=== PATIENT | female | born 1990 | race Caucasian/White ===

== ENCOUNTER 2024-08-14 20:03 | Emergency (ER) | payer BC, OTHER ==
[~2024-08-14] VITALS: Ht 160 cm; Wt 54.5 kg
[~2024-08-14 20:03] MED LIST: ALBU8HFA PO; GUAI120018 PO
[2024-08-14] MEDS: LEVONORGESTREL 1.5MG tablet 1.5 MG TABLET PO ONE (22:25)
[2024-08-14] MEDS: TINIDAZOLE 500 MG TABLET PO ONE (22:25)
[2024-08-14] MEDS: CefTRIAXone 500MG IM Kit w/LIDOcaine IM ONE (22:25)
[2024-08-14] MEDS: azithromycin 250mg tablet PO ONE (22:25)
[2024-08-14 23:19] LABS: BASOPHILS # (AUTO) 0.1 X10'3 (0-0.2); BASOPHILS % (AUTO) 0.8 % (0-1); EOSINOPHILS % (AUTO) 0.5 % (0-6); HEMATOCRIT 39.9 % (35.0-45.0); HEMOGLOBIN 13.7 g/dl (12.0-16.0); LYMPHOCYTES # (AUTO) 1.8 X10'3 (1.1-4.8); LYMPHOCYTES % (AUTO) 24.7 % (21-51); MEAN CORPUSCULAR HEMOGLOBIN 29.6 PG (27.0-31.0); MEAN CORPUSCULAR HGB CONC 34.4 g/dL (33.0-36.5); MEAN CORPUSCULAR VOLUME 86.2 FL (78-98); MEAN PLATELET VOLUME 9.7 FL (7.4-10.4); MONOCYTES # (AUTO) 0.6 X10'3 (0-0.9); MONOCYTES % (AUTO) 8.2 % (2-12); NEUTROPHILS # (AUTO) 4.9 X10'3 (1.8-7.7); NEUTROPHILS % (AUTO) 65.8 % (42-75); PLATELET COUNT 322 X10'3 (140-440); RED BLOOD COUNT 4.63 X10'6 (4.20-5.60); RED CELL DISTRIBUTION WIDTH 13.5 % (11.5-14.5); WHITE BLOOD COUNT 7.4 X10'3 (4.5-11.0)
[2024-08-14] MEDS ORDERED: diphenhydrAMINE 50 mg/ml inj IM ONE (23:35)
[2024-08-14] MEDS: haloperidol lactate 5mg/ml inj IM ONE (23:35)
[2024-08-15 00:09] LABS: BILIRUBIN,URINE NEGATIVE (Neg); CLARITY,URINE CLEAR (Clear); COLOR,URINE YELLOW (Yellow); GLUCOSE, URINE NEGATIVE (Neg); KETONES,URINE >=80 mg/dl (Neg); LEUKOCYTE ESTERASE ,URINE NEGATIVE (Neg); NITRITES, URINE NEGATIVE (Neg); OCCULT BLOOD,URINE NEGATIVE (Neg); PH,URINE 6.5 (4.8-8.0); PROTEIN,URINE NEGATIVE (Neg); URINE HCG NEGATIVE (NEG); UROBILINOGEN,URINE 0.2 E.U/dL (0.2-1.0)
[2024-08-15 00:10] LABS: ALBUMIN 4.3 G/DL (3.4-5.0); ANION GAP 11 (8-16); BLOOD UREA NITROGEN 3 MG/DL (7-18); BUN/CREATININE RATIO 5.5 (10.0-20.0); CHLORIDE 104 MMOL/L (99-107); CREATININE 0.55 MG/DL (0.40-0.90); GLUCOSE 115 MG/DL (70-104); POTASSIUM 3.3 MMOL/L (3.5-5.1); SODIUM 140 MMOL/L (135-145); eCRCL 121 ML/MIN; eGFR > 90 ML/MIN
[2024-08-15 00:14] LABS: UA COLLECTION TYPE NON-SPECIFIED
[2024-08-15 00:29] LABS: ETHANOL < 10 MG/DL (<10)
[2024-08-15 00:29] LABS: URINE AMPHETAMINE SCREEN POSITIVE (Neg); URINE BARBITUATE SCREEN NEGATIVE (Neg); URINE BENZODIAZEPINES SCREEN POSITIVE (Neg); URINE CANNABINOID SCREEN POSITIVE (Neg); URINE COCAINE SCREEN NEGATIVE (Neg); URINE METHADONE SCREEN NEGATIVE (Neg); URINE OPIATE SCREEN NEGATIVE (Neg); URINE PHENCYCLIDINE SCREEN NEGATIVE (Neg)
[2024-08-15] MEDS: potassium Cl 20 mEq SR tablet PO STA (00:52)
[2024-08-15] MEDS: LORazepam 2 mg/ml vial IM ONE (01:29)
[2024-08-15] MEDS: diphenhydrAMINE 25mg capsule PO ONE (03:23)
[2024-08-15] MEDS: OLANZapine 2.5MG tablet PO STA (11:47)
[2024-08-15] MEDS ORDERED: NO HOME MEDS (15:53)
[2024-08-15] MEDS: LEVONORGESTREL 1.5MG tablet 1.5 MG TABLET PO ONE (16:29)
[2024-08-15] MEDS: azithromycin 250mg tablet PO ONE (16:29)
[2024-08-15] MEDS: TINIDAZOLE 500 MG TABLET PO ONE (16:29)
[2024-08-15] MEDS: CefTRIAXone 500MG IM Kit w/LIDOcaine IM ONE (16:29)
[2024-08-15 18:37] VITALS: BP 95/62; PULSE 100; RESP 16; TEMP 97.9; O2SAT 96
== END 2024-08-15 18:43 | disposition still patient (30) ==
LOC: ER 20:05 → EEVIPCON 20:05 → ER 08-15 18:43
DX: E87.6 Hypokalemia (principal); F29 Unspecified psychosis not due to a substance or known physiological condition; Z88.0 Allergy status to penicillin; Z88.1 Allergy status to other antibiotic agents; Z88.2 Allergy status to sulfonamides; Z20.822 Contact with and (suspected) exposure to COVID-19
CPT/HCPCS: 36415; 80048; 80305; 80320; 81003; 81025; 84443; 85025; 87811; 96372; 99285; J0696; J2060; Q0163; 99284

== ENCOUNTER 2024-08-28 18:47 | Emergency (ER) | payer BC ==
[~2024-08-28] VITALS: Ht 160 cm; Wt 54.0 kg
[~2024-08-28 18:47] MED LIST changes: -ALBU8HFA PO; -GUAI120018 PO; +NO HOME MEDS
[2024-08-28 18:53] VITALS: BP 112/75; PULSE 123; RESP 16; TEMP 97.8; O2SAT 98
== END 2024-08-28 22:29 | disposition left against medical advice (07) ==
LOC: ER 18:48
DX: F41.9 Anxiety disorder, unspecified (principal); Z88.0 Allergy status to penicillin; Z88.2 Allergy status to sulfonamides; Z88.8 Allergy status to other drugs, medicaments and biological substances; Z53.21 Procedure and treatment not carried out due to patient leaving prior to being seen by health care provider